=== PATIENT | male | born 1960 | race Caucasian/White ===

== ENCOUNTER → 2016-07-08 | Outpatient (CLI) | payer BC ==
[~2016-07-08] MED LIST: MUCINEX D 600 M1 TER PO; NORCO 325 MG-7.1 TAB PO; PERCOCET 5/321 UDTAB PO; SERTRALINE; XANAX0.5 MG PO; ZITHROMAX Z PA250 MG PO; [UNRECOGNIZED DRUG - OTHER]
== END ==
LOC: BHSO 08:46
DX: F90.0 Attention-deficit hyperactivity disorder, predominantly inattentive type (principal)

== ENCOUNTER → 2017-02-03 | Outpatient (CLI) | payer BC, OTHER | LOC: BHSO 15:04 | DX: F90.0 Attention-deficit hyperactivity disorder, predominantly inattentive type (principal) ==

== ENCOUNTER → 2017-09-11 | Outpatient (CLI) | payer BC, OTHER | LOC: BHSO 12:59 | DX: F90.0 Attention-deficit hyperactivity disorder, predominantly inattentive type (principal) | CPT/HCPCS: G0463 ==

== ENCOUNTER → 2018-06-11 | Outpatient (CLI) | payer BC, OTHER | LOC: BHSO 09:09 | DX: F90.0 Attention-deficit hyperactivity disorder, predominantly inattentive type (principal) | CPT/HCPCS: G0463 ==

== ENCOUNTER → 2018-11-05 | Outpatient (CLI) | payer BC | LOC: BHSO 07:57 | DX: F90.0 Attention-deficit hyperactivity disorder, predominantly inattentive type (principal) | CPT/HCPCS: G0463 ==

== ENCOUNTER → 2019-06-20 | Outpatient (CLI) | payer BC | LOC: BHSO 07:58 | DX: F90.0 Attention-deficit hyperactivity disorder, predominantly inattentive type (principal) | CPT/HCPCS: G0463 ==

== ENCOUNTER → 2019-12-11 | Outpatient (CLI) | payer BC | LOC: BHSO 08:02 | DX: F90.0 Attention-deficit hyperactivity disorder, predominantly inattentive type (principal) | CPT/HCPCS: G0463 ==